=== PATIENT | male | born 1935 | race Caucasian/White ===

== ENCOUNTER → 2017-11-10 | Outpatient (CLI) | payer OTHER, MEDICARE | LOC: FIMAGING 10:10 | PROVIDERS: ATTEND Internal Medicine | DX: H54.7 Unspecified visual loss (principal); I10 Essential (primary) hypertension ==

== ENCOUNTER → 2019-02-19 | Outpatient (CLI) | payer OTHER, MEDICARE | LOC: BMCIMAGING 11:59 | PROVIDERS: ATTEND Physician Assistant | DX: K59.00 Constipation, unspecified (principal) ==